=== PATIENT | female | born 1940 | race Asian ===

== ENCOUNTER 2018-08-13 12:11 | Inpatient (IN) | payer OTHER ==
[~2018-08-13] VITALS: Ht 149.9 cm; Wt 48.5 kg
[2018-08-13 12:21] VITALS: BP 150/77
[2018-08-13] MEDS ORDERED: NACL 0.9% 1,000 ML IV ONE (13:00)
--- NOTE | 2018-08-13 13:10 | NUR ---
x-ray at bedside
--- NOTE | 2018-08-13 13:15 | NUR ---
PT IS A 78 Y/O FEMALE WHO PRESENTS TO THE ED C/O NAUSEA/VOMITING. PER DAUGHTER PT HAD BEEN VOMITING ON AND OFF X3 MONTHS. COMPLAINS OF DIZZYNESS, AND BLURRED VISION WITH HEADACHE. PT WAS SEEN BY PCP DR. BHARDWAJ AND GIVEN RX OF PEPCID AND ZOFRAN WITH NO RELIEF. PT APPEARS TO BE IN 8/10 ACHING EPIGASTRIC PAIN THAT DOES NOT RADIATE. PT DENIES CP, SOB, REPORTS NAUSEA/VOMITING DENIES DIARRHEA. PT AWAKE AND ALERT, RR EVEN/UNLABORED. PT REPOSITIONED FOR COMFORT, BED IN LOWEST POSITION. ER MD DR. BENITEZ NTOIFIED. WILL CONTINUE TO MONITOR. MEDHX:VERTIGO, HISTORY OF DVT
--- NOTE | 2018-08-13 13:27 | NUR ---
Patient returned from CT scan. RN re-evaluating patient at bedside.
[2018-08-13 13:47] LABS: BASOPHILS % (AUTO) 0.4 % (0.0-2.0); EOSINOPHILS % (AUTO) 0.7 % (0.0-4.0); HEMATOCRIT 40.2 % (36-48); HEMOGLOBIN 13.3 g/dL (12.0-16.0); LYMPHOCYTES # (AUTO) 1.2 K/uL (2.5-16.5); LYMPHOCYTES % (AUTO) 36.3 % (20.5-51.1); MEAN CORPUSCULAR HEMOGLOBIN 30 pg (27-31); MEAN CORPUSCULAR HGB CONC 33 g/dL (33-37); MEAN CORPUSCULAR VOLUME 90.8 fL (80-94); MONOCYTES # (AUTO) 0.3 K/uL (0.8-1.0); MONOCYTES % (AUTO) 8.3 % (1.7-9.3); NEUTROPHILS # (AUTO) 1.8 K/uL (1.8-7.7); NEUTROPHILS % (AUTO) 54.3 % (42.2-75.2); PLATELET COUNT (AUTO) 205 K/uL (140-450); RED BLOOD CELL COUNT(AUTO) 4.42 MIL/uL (4.20-5.40); RED CELL DISTRIBUTION WIDTH 13.2 % (11.6-13.7); WHITE BLOOD COUNT (AUTO) 3.3 K/uL (4.8-10.8)
[2018-08-13 13:52] LABS: ANION GAP 13.4 (8-16); CARBON DIOXIDE 28.5 mmol/L (21-32); CHLORIDE 104 mmol/L (98-107); CREATININE 0.8 mg/dL (0.6-1.3); GLUCOSE 90 mg/dL (74-106); POTASSIUM 3.9 mmol/L (3.5-5.1); SODIUM SERUM 142 mmol/L (136-145); UREA NITROGEN, BLOOD 11 mg/dL (7-18)
[2018-08-13 13:59] LABS: ALBUMIN 3.8 g/dL (3.4-5.0); ASPARTATE AMINOTRANSFERASE 21 U/L (15-37); LIPASE 206 U/L (73-393); TOTAL BILIRUBIN 0.9 mg/dL (0.0-1.0)
--- NOTE | 2018-08-13 14:20 | NUR ---
PT TO CT VIA [facility].
--- NOTE | 2018-08-13 14:30 | NUR ---
PT BACK FROM CT
[2018-08-13 15:26] LABS: APPEARANCE,URINE CLEAR (CLEAR); BILIRUBIN,URINE NEGATIVE (NEGATIVE); COLOR,URINE YELLOW (YELLOW); LEUKOCYTE ESTERASE ,URINE NEGATIVE (NEGATIVE); NITRITE, URINE NEGATIVE (NEGATIVE); UGLUCOSE NEGATIVE (NEGATIVE)
[2018-08-13 15:28] LABS: BLOOD, URINE NEGATIVE (NEGATIVE)
[2018-08-13] MEDS ORDERED: HYDROcodone/APAP 7.5/325 MG 1 TAB PO PRN (16:45)
[2018-08-13] MEDS ORDERED: ACETAMINOPHEN 325 MG TAB PO PRN (16:45)
[2018-08-13] MEDS ORDERED: DOCUSATE SODIUM 100 MG GELCAP PO PRN (16:45)
[2018-08-13] MEDS ORDERED: ONDANSETRON 4 MG/2 ML VIAL IM/IVP PRN (16:45)
[2018-08-13] MEDS ORDERED: MEDICATION REC. PHARMACY CONS. 1 EA MISC MC PRN (16:50)
--- NOTE | 2018-08-13 17:01 | NUR ---
Dr. Goff evaluating patient at bedside.
[2018-08-13] MEDS ORDERED: OMEP20TC12 PO (17:20)
[2018-08-13] MEDS ORDERED: RIVA20TA PO (17:21)
[2018-08-13] MEDS ORDERED: SCOP1PAT TP (17:22)
[2018-08-13 17:36] LABS: PROTHROMBIN TIME 10.1 secs (10.8-13.4)
[2018-08-13 17:39] LABS: BARBITURATE, URINE NEG. ng/ml (NEG <=200); BENZODIAZEPINE, URINE NEG. ng/mL (NEG <=200); CANNABINOID, URINE NEG. ng/mL (NEG <=50); COCAINE, URINE NEG. ng/mL (NEG <=300); OPIATE, URINE NEG. ng/mL (NEG <=2000); PHENCYCLIDINE SCREEN,URINE NEG. ng/mL (NEG <=25)
--- NOTE | 2018-08-13 17:40 | NUR ---
Patient will be admitted to care of DR. BHARDWAJ. Admited to MED SURG. Will go to room 128A. Belongings list completed. Report to RAFAEL CUNNINGHAM.
[2018-08-13 17:47] LABS: CHOL/HDL RATIO 2.9 (1-4.5); FREE T4 (FREE THYROXINE) 1.39 ng/dL (0.76-1.46); MAGNESIUM 2.3 mg/dL (1.8-2.4); PHOSPHORUS 3.4 mg/dL (2.5-4.9); THYROID STIMULATING HORMONE 1.1 uIU/mL (0.34-3.74)
[2018-08-13] MEDS ORDERED: ORE25 PO (18:34)
[2018-08-13 19:00] VITALS: BP 132/78
--- NOTE | 2018-08-13 19:00 | NUR ---
ADMITTED A 78F FROM ER. CAME BY MAO ACCOMPANIED BY FAMILY MEMBERS. PT SPEAKS TURKISH. ABLE TO GET DIRECTOR PROCESS IMPROVEMENT ,DEBBI #[id number] AMBULATORY MED SURG PT. CAME DUE TO INTRACTABLE VOMITING AND POOR APPETITE. PT HAS IV ACCESS ON THE LT AC G#20 ,CLEAR AND PATENT. NO C/O ANY PAIN AT THIS TIME. PLAN OF CARE DISCUSSED WITH PT/. VERBALIZED UNDERSTANDING. DR. Timothy GUTIERREZ JUST CAME AND SEEN PT. ABLE TO TALKED TO PT/FAMILY ABOUT PROCEDURE TO BE DONE . BED ON LOWEST POSITION. FREQ CHECKED NEEDED. CALL LIGHT PLACED WITHIN EASY REACH. PLACED COMFORTABLE IN BED. WILL CONTINUE TO MONITOR.
[2018-08-13] MEDS ORDERED: MECLIZINE 25 MG TAB PO PRN (19:10)
[2018-08-13] MEDS: DEXT 5% /NACL 0.9% 1,000 ML IV SCH (19:35)
[2018-08-13] MEDS: METOCLOPRAMIDE 10 MG/2 ML INJ VIAL IVP SCH (21:29)
[2018-08-13] MEDS: PANTOPRAZOLE 40 MG INJ VIAL IVP SCH (21:29)
[2018-08-13] MEDS: LACTULOSE 20 GM/30 ML UDC PO SCH (21:29)
--- NOTE | 2018-08-13 21:55 | NUR ---
PT SIGNED CONSENT FOR THE EGB AFTER DR. ART EXPLAINED THE PROCEDURE TO PT/SON. VERBALIZED UNDERSTANDING.
--- NOTE | 2018-08-13 22:30 | NUR ---
PT TOOK LACTULOSE 2100. HAD A MODERATE LOOSE BM.
[2018-08-14] VITALS (7 sets, daily range): BP systolic 114–135; BP diastolic 60–77
--- NOTE | 2018-08-14 | NUR ---
PT SEEPING WELL. NO S/S OF ANY DISCOMFORT NOTED. WILL CONTINUE TO MONITOR.
--- NOTE | 2018-08-14 02:00 | NUR ---
MADE ROUNDS. PT ASLEEP. NO DISCOMFORT NOTED. WILL CONTINUE TO MONITOR.
--- NOTE | 2018-08-14 02:30 | NUR ---
AWAKE. ASSISTED UP TO BATHROOM ,VOIDED.
--- NOTE | 2018-08-14 04:00 | NUR ---
PT ASLEEP./ NO S/S OF ANY DISCOMFORT NOTED.
[2018-08-14] MEDS: METOCLOPRAMIDE 10 MG/2 ML INJ VIAL IVP SCH ×3 (04:48→23:04)
--- NOTE | 2018-08-14 05:25 | NUR ---
PT HAS BEEN KEPT NPO SINCE AFTER MN FOR EGD TODAY BY DR. Chris GUTIERREZ.
[2018-08-14 06:16] LABS: T4 (THYROXINE) 9.1 ug/dL (4.5-12.0)
[2018-08-14 07:00] LABS: ANION GAP 11.4 (8-16); CARBON DIOXIDE 26.3 mmol/L (21-32); CHLORIDE 109 mmol/L (98-107); CREATININE 0.7 mg/dL (0.6-1.3); GLUCOSE 103 mg/dL (74-106); POTASSIUM 3.7 mmol/L (3.5-5.1); SODIUM SERUM 143 mmol/L (136-145); UREA NITROGEN, BLOOD 9 mg/dL (7-18)
--- NOTE | 2018-08-14 07:05 | NUR ---
PT KEPT NPO. WILL ENDORSE PT IN STABLE CONDITION TO AM NURSE.
--- NOTE | 2018-08-14 07:06 | NUR ---
RECEIVED BEDSIDE REPORT FROM JAVASCRIPT UI DEVELOPER NURSE. PATIENT IS AWAKE, ALERT AND ORIENTEDX4. LITHUANIAN SPEAKER. PATIENT HAS WEAKNESS. FALL RISK PROTOCOL IN PLACE. SKIN IS INTACT. PATIENT IS CONTINENT. IV ON L AC 20G INFUSING D5NS AT 60. CLEAN, DRY AND INTACT. BED IN LOW POSITION. CALL LIGHT WITHIN REACH. PATIENT ABLE TO MAKE NEEDS KNOWN
[2018-08-14 07:33] LABS: BASOPHILS % (AUTO) 0.6 % (0.0-2.0); EOSINOPHILS # (AUTO) 0.1 K/uL (0-0.4); EOSINOPHILS % (AUTO) 2.6 % (0.0-4.0); HEMATOCRIT 38.3 % (36-48); HEMOGLOBIN 12.7 g/dL (12.0-16.0); LYMPHOCYTES % (AUTO) 36.2 % (20.5-51.1); MEAN CORPUSCULAR HEMOGLOBIN 30 pg (27-31); MEAN CORPUSCULAR HGB CONC 33 g/dL (33-37); MONOCYTES # (AUTO) 0.2 K/uL (0.8-1.0); MONOCYTES % (AUTO) 8.1 % (1.7-9.3); NEUTROPHILS # (AUTO) 1.5 K/uL (1.8-7.7); NEUTROPHILS % (AUTO) 52.5 % (42.2-75.2); PLATELET COUNT (AUTO) 196 K/uL (140-450); RED BLOOD CELL COUNT(AUTO) 4.22 MIL/uL (4.20-5.40); RED CELL DISTRIBUTION WIDTH 13.3 % (11.6-13.7); WHITE BLOOD COUNT (AUTO) 2.8 K/uL (4.8-10.8)
--- NOTE | 2018-08-14 08:20 | NUR ---
PATIENT HAS BEEN SCREENED AND CATEGORIZED HIGH NUTRITION RISK. PATIENT WILL BE SEEN WITHIN 1-2 DAYS OF ADMISSION. 08/14/18-08/15/[address]
[2018-08-14] MEDS ORDERED: RIVAROXABAN 10 MG TAB PO SCH (09:00)
[2018-08-14] MEDS: LACTULOSE 20 GM/30 ML UDC PO SCH ×3 (09:00→23:05)
[2018-08-14] MEDS ORDERED: PANTOPRAZOLE 40 MG INJ VIAL IVP SCH (09:00)
--- NOTE | 2018-08-14 09:10 | NUR ---
PATIENT AMBULATED TO THE RESTROOM W ASSISTANCE. PATIENT BACK TO BED IN STABLE CONDITION
[2018-08-14] MEDS: HYDROCHLOROTHIAZIDE 25 MG TAB PO SCH (10:22)
[2018-08-14] MEDS: SENNA 8.6 MG TAB PO SCH ×3 (10:22→16:37)
[2018-08-14] MEDS: PANTOPRAZOLE 40 MG INJ VIAL IVP SCH (10:22)
[2018-08-14] MEDS: DEXT 5% /NACL 0.9% 1,000 ML IV SCH (10:23)
--- NOTE | 2018-08-14 10:23 | NUR ---
ADMINISTERED MEDS. EDUCATED PATIENTS SON ON SIDE EFFECTS. PATIENT VERBALIZED UNDERSTANDING. REFUSED SENNA AND LACTULOSE. EDUCATED ON REFUSAL. PATIENT FEELS WEAKNESS FROM NAUSEA AND VOMITING AND DOES NOT WANT TO BE ON THE TOILET. WILL CONTINUE TO MONITOR. PATIENT TO DO PT AT THIS TIME
--- NOTE | 2018-08-14 12:00 | NUR ---
PATIENT IS SLEEPING. NO SIGNS OF DISTRESS. WILL CONTINUE TO MONITOR THE PATIENT.
--- NOTE | 2018-08-14 13:45 | NUR ---
SHERICE, OR NURSE JUST TALKED TO A PATIENT AND SON TO HELP HER W ANXIETY ABOUT THE PROCEDURE. TOLD THEM DR GUTIERREZ WILL DO THE PROCEDURE AT 1500. PATIENT VERBALIZED UNDERSTANDING AND FEELS BETTER
[2018-08-14] MEDS ORDERED: fentaNYL 0.05 MG/ML VIAL ONE (14:11)
[2018-08-14] MEDS ORDERED: MIDAZOLAM 2 MG/2 ML VIAL ONE (14:12)
--- NOTE | 2018-08-14 14:15 | NUR ---
ADMINISTERED MEDS. PATIENT EDUCATED ON SIDE EFFECTS, VERBALIZED UNDERSTANDING. PATIENT REFUSED SENNA
--- NOTE | 2018-08-14 14:45 | NUR ---
PATIENT IS ASKING TO SIT UP. SAT PATIENT UP IN BED. NO SIGNS OF DISTRESS. AT BEDSIDE. WILL CONTINUE TO MONITOR THE PATIENT
--- NOTE | 2018-08-14 14:47 | NUR ---
08/14/18 RD INITIAL ASSESSMENT COMPLETED PLEASE REFER TO NUTRITION ASSESSMENT UNDER CARE ACTIVITY FOR ESTIMATED NUTRITIONAL NEEDS. 1. CONTINUE NPO MEDICALLY NECESSARY 2. RECOMMEND SWALLOW EVALUATION 3. RECOMMEND NA2G LOW FAT DIET WITH TEXTURE SUGGESTED BY SWALLOW EVALUATION 4. CHOLESTEROL LOWERING EDUCATION WAS PROVIDED 5. RD TO FOLLOW-UP 3-5 DAYS, MODERATE RISK WALKER GORE RD
--- NOTE | 2018-08-14 15:29 | NUR ---
PATIENT LEFT IN STABLE CONDITION W OR NURSES.
[2018-08-14] MEDS ORDERED: fentaNYL 0.05 MG/ML VIAL IVP SCH (16:00)
[2018-08-14] MEDS ORDERED: MIDAZOLAM 2 MG/2 ML VIAL IVP SCH (16:00)
--- NOTE | 2018-08-14 16:10 | NUR ---
PATIENT BACK FROM OR IN STABLE CONDITION. VITALS ARE STABLE 98.6 123/63 79 96% 14. PATIENT REFUSES STOOL SOFTENERS, SHE IS NOT CONSENTING FOR COLONOSCOPY ORDERED BY DR GUTIERREZ. DR ASHLEY IS AWARE.
[2018-08-14] MEDS ORDERED: MECLIZINE 25 MG TAB PO PRN (16:15)
--- NOTE | 2018-08-14 16:39 | NUR ---
PATIENT LEAVING TO GET CT SCAN DONE, CONSENT SIGNED. PATIENT LEFT IN WHEELCHAIR IN STABLE CONDITION
--- NOTE | 2018-08-14 16:55 | NUR ---
PATIENT BACK FROM CT IN STABLE CONDITION. US HERE TO DO US OF GALLBLADDER
--- NOTE | 2018-08-14 17:52 | NUR ---
PATIENT WANTS TO GO HOME. WILL LET RESIDENTS KNOW.
--- NOTE | 2018-08-14 18:47 | NUR ---
DR ART AND DR GUTIERREZ AWARE THAT IF US IS NEGATIVE PATIENT WANTS TO GO AMA.
[2018-08-14] MEDS ORDERED: MAGNESIUM CITRATE 300 ML BTL PO SCH (19:00)
[2018-08-14] MEDS ORDERED: CHLORHEXADINE GLUC 2% CLOTH TP SCH (19:05)
--- NOTE | 2018-08-14 19:23 | NUR ---
GAVE BEDSIDE REPORT TO CLINICAL TECH NURSE. PATIENT ENDORSED IN STABLE CONDITION
--- NOTE | 2018-08-14 19:25 | NUR ---
RECEIVED PT FROM TOBIAS RN PT AAOX4 AMBULATES WITH CINDER SNAPPER TO THE RESTROOM, AND PT AND FAMILY REFUSED COLONOSCOPY FOR TOMORROW , BUT PT IS MRSA NARES POSSITIVE WAITING FOR FAMILY
[2018-08-14] MEDS ORDERED: MUPIROCIN CA NASAL 2% 1GM TUBE NS SCH (20:00)
[2018-08-14] MEDS: POLYETHYLENE GLYCOL 17 GM/PKT PO SCH (21:00)
--- NOTE | 2018-08-14 21:10 | NUR ---
I EXPLAIN FAMILY THE IMPORTANT DARIUS IN THE HOSPITAL AND PT IS MRSA NARES POSS AND ALSO DR ART TALKED TO FAMILY TOO AND FAMILY DECIDE PT CAN STAY , AND TREATMENT TO FOLLOW
--- NOTE | 2018-08-14 23:30 | NUR ---
PT IS TRANSFER TO ROOM 115 FOR COTACT ISOLATION FOR MRSA NARES POSSITIVE.
[2018-08-15] VITALS: BP 123/66
--- NOTE | 2018-08-15 01:17 | NUR ---
PT IS ASSITED TO THE RESTROOM VOIDING WELL NOT DISTRESS NOTED
[2018-08-15] MEDS: DEXT 5% /NACL 0.9% 1,000 ML IV SCH (02:03)
--- NOTE | 2018-08-15 03:00 | NUR ---
PT SLEEPING WELL IV ON LEFT AC INFUSING WELL REMAIN STABLE AT THIS TIME DENIES ANY PAIN
--- NOTE | 2018-08-15 05:24 | NUR ---
SPONGE BATHGIVEN LINEN CHANGED NOT DISTRESS NOTED REPOSITIONED Q2H, IV INFUSING WELL ON LEFT AC
[2018-08-15] MEDS: METOCLOPRAMIDE 10 MG/2 ML INJ VIAL IVP SCH (05:30)
--- NOTE | 2018-08-15 06:23 | NUR ---
PT AND FAMILY REFUSED COLONOSCOPY DR Timothy GUTIERREZ AWARE PT WILLBE ENDORSED TO [facility]SD.[facility] NURSE FOR CONTINUITY OF CARE ,PT IS MRSA NARES POSSITIVE
[2018-08-15] MEDS ORDERED: MAGNESIUM CITRATE 300 ML BTL PO SCH (07:00)
[2018-08-15 07:14] LABS: BASOPHILS % (AUTO) 0.9 % (0.0-2.0); EOSINOPHILS # (AUTO) 0.1 K/uL (0-0.4); EOSINOPHILS % (AUTO) 3.3 % (0.0-4.0); HEMATOCRIT 37.2 % (36-48); HEMOGLOBIN 12.6 g/dL (12.0-16.0); LYMPHOCYTES # (AUTO) 0.8 K/uL (2.5-16.5); LYMPHOCYTES % (AUTO) 22.8 % (20.5-51.1); MEAN CORPUSCULAR HEMOGLOBIN 31 pg (27-31); MEAN CORPUSCULAR HGB CONC 34 g/dL (33-37); MONOCYTES # (AUTO) 0.2 K/uL (0.8-1.0); MONOCYTES % (AUTO) 6.8 % (1.7-9.3); NEUTROPHILS # (AUTO) 2.3 K/uL (1.8-7.7); NEUTROPHILS % (AUTO) 66.2 % (42.2-75.2); PLATELET COUNT (AUTO) 190 K/uL (140-450); RED BLOOD CELL COUNT(AUTO) 4.14 MIL/uL (4.20-5.40); WHITE BLOOD COUNT (AUTO) 3.4 K/uL (4.8-10.8)
[2018-08-15 07:17] LABS: ANION GAP 11.4 (8-16); CARBON DIOXIDE 26.8 mmol/L (21-32); CHLORIDE 108 mmol/L (98-107); CREATININE 0.7 mg/dL (0.6-1.3); GLUCOSE 116 mg/dL (74-106); POTASSIUM 3.2 mmol/L (3.5-5.1); SODIUM SERUM 143 mmol/L (136-145); UREA NITROGEN, BLOOD 5 mg/dL (7-18)
--- NOTE | 2018-08-15 07:27 | NUR ---
RECEIVED BEDSIDE REPORT FROM BRICK PITCHER RN FOR CONTINUITY OF CARE. PT IN STABLE CONDITION. DENIES PAIN AND DISCOMFORT. NO S/S DISTRESS. RESPIRATIONS EVEN AND UNLABORED. SKIN INTACT. PT IS AMBULATORY W/ ASSIST. IV SITE PATENT AND ASYMPTOMATIC. ALL SAFETY PRECAUTIONS IN PLACE, WILL CONTINUE TO MONITOR.
[2018-08-15 08:00] VITALS: BP 128/71
[2018-08-15] MEDS: POLYETHYLENE GLYCOL 17 GM/PKT PO SCH (09:00)
[2018-08-15] MEDS ORDERED: PANTOPRAZOLE 40 MG INJ VIAL IVP SCH (09:00)
[2018-08-15] MEDS: LACTULOSE 20 GM/30 ML UDC PO SCH (09:00)
[2018-08-15] MEDS: SENNA 8.6 MG TAB PO SCH (09:00)
[2018-08-15] MEDS ORDERED: MUPIROCIN CA NASAL 2% 1GM TUBE NS SCH ×2 (09:00)
[2018-08-15] MEDS ORDERED: CHLORHEXADINE GLUC 2% CLOTH TP SCH ×2 (09:00→09:05)
--- NOTE | 2018-08-15 09:09 | NUR ---
NOTIFIED DR. QUINTEROS THAT K+ IS 3.2 AND FAMILY MEMBER AT BEDSIDE NOW WOULD LIKE TO SPEAK WITH REGARDING MEDICATIONS.
[2018-08-15] MEDS: HYDROCHLOROTHIAZIDE 25 MG TAB PO SCH (09:20)
--- NOTE | 2018-08-15 09:21 | NUR ---
DR. DAILEY IN ROOM TO ANSWER ALL OF FAMILY MEMBER'S QUESTIONS. PER DR. DAILEY, DO NOT ADMIN LACTULOSE, SENNA, MIRALAX.
[2018-08-15] MEDS ORDERED: POTASSIUM CHLORIDE 20% 40 MEQ/15 ML UDC GT SCH (10:00)
[2018-08-15] MEDS ORDERED: MECL-272 PO (10:24)
[2018-08-15] MEDS ORDERED: CITA20TA15 PO (10:25)
--- NOTE | 2018-08-15 11:30 | NUR ---
DISCHARGE PAPERWORK, INCLUDING INSTRUCTIONS TO F/U WITH PCP, GIVEN TO PATIENT AND FAMILY MEMBER. PATIENT PREFERS FAMILY MEMBER AT BEDSIDE TO TRANSLATE. ALSO GAVE D/C SUMMARY, EGD REPORT, CT CHEST REPORT, CT ABD/PELVIS REPORT TO FAMILY MEMBER PER DR. DAILEY ORDERS. NEW PRESCRIPTION/MEDICATION TEACHING AND MEDICATION RECONCILIATION TEACHING GIVEN TO PATIENT. FAMILY MEMBER VERBALIZED COMPLETE UNDERSTANDING OF ALL D/C TEACHING. IV SITE REMOVED WITH MINIMAL BLOOD LOSS AND LUMEN COMPLETELY INTACT. ID BANDS REMOVED. ALL PERSONAL BELONGINGS ARE WITH PATIENT. PATIENT DISCHARGED AND WILL GO HOME WITH FAMILY MEMBER VIA PRIVATE VEHICLE.
--- NOTE | 2018-08-15 14:04 | NUR ---
Late entry. onfirmed with RN that 1000 ml 0.9NS IV bolus was complete at 1430.
== END 2018-08-15 11:30 | disposition home or self-care (01) | DRG 74 ==
LOC: MED 12:11 → MMU 16:43 → MTU 08-14 23:55
PROVIDERS: ADMIT Family Medicine; ATTEND Family Medicine
PROC: 0DB68ZX Excision of Stomach, Via Natural or Artificial Opening Endoscopic, Diagnostic (ICD-10-PCS; principal; 2018-08-14 15:55)
DX: G90.8 Other disorders of autonomic nervous system (principal); I82.509 Chronic embolism and thrombosis of unspecified deep veins of unspecified lower extremity; K21.9 Gastro-esophageal reflux disease without esophagitis; D72.819 Decreased white blood cell count, unspecified; M41.9 Scoliosis, unspecified; I10 Essential (primary) hypertension; R42 Dizziness and giddiness; R62.7 Adult failure to thrive; E78.2 Mixed hyperlipidemia; F32.9 Major depressive disorder, single episode, unspecified; M47.896 Other spondylosis, lumbar region; B95.62 Methicillin resistant Staphylococcus aureus infection as the cause of diseases classified elsewhere; R13.10 Dysphagia, unspecified; E83.51 Hypocalcemia; K76.89 Other specified diseases of liver; K59.09 Other constipation; Z79.01 Long term (current) use of anticoagulants; Z79.899 Other long term (current) drug therapy; Z68.21 Body mass index [BMI] 21.0-21.9, adult; Q65.02 Congenital dislocation of left hip, unilateral; Z56.0 Unemployment, unspecified
CPT/HCPCS: 36415; 70450; 71045; 71270; 76705; 80048; 80053; 80305; 81003; 82140; 82150; 82550; 83036; 83605; 83690; 83735; 83880; 84100; 84436; 84439; 84443; 84479; 84484; 85025; 85610; 85651; 85730; 86140; 86677; 87040; 87081; 93005; 93880; 97116; 97530; 99285; C9113; J2250; J2765; J3010; J7030; J7042; Q0092; Q9967